=== PATIENT | female | born 1995 | race Caucasian/White ===

== ENCOUNTER 2022-05-27 21:13 | Emergency (ER) | payer OTHER ==
[2022-05-27 23:27] LABS: ANION GAP 11.3 mEq/L (7-13)
== END 2022-05-28 00:50 | disposition home or self-care (01) ==
LOC: DL.ED 21:13
DX: O03.9 Complete or unspecified spontaneous abortion without complication (principal); Z88.2 Allergy status to sulfonamides; Z79.84 Long term (current) use of oral hypoglycemic drugs
CPT/HCPCS: 36415; 80053; 81001; 81025; 84702; 85025; 99283; 99284